=== PATIENT | female | born 1985 | race Caucasian/White ===

== ENCOUNTER 2019-09-19 11:37 | Emergency (ER) | payer BC ==
[~2019-09-19] VITALS: Ht 160 cm; Wt 93.9 kg
[2019-09-19 11:59] VITALS: Ht 160 cm; Wt 93.9 kg
[2019-09-19 12:44] LABS: BASOPHIL % 0.2 % (0-2); CALCIUM 8.9 mg/dL (8.5-10.1); CARBON DIOXIDE 27.5 mmol/L (21-32); CHLORIDE SERUM 106 mmol/L (98-107); CREATININE SERUM 0.8 mg/dL (0.6-1.0); GFR1 > 60 mL/min; GLUCOSE SERUM 113 mg/dL (74-106); PLATELET COUNT 350 x10^3mcL (130-400); POTASSIUM SERUM 4.2 mmol/L (3.5-5.1); RED CELL DISTRIBUTION WIDTH 13.3 % (11.5-14.5); SODIUM SERUM 142 mmol/L (136-145)
[2019-09-19 12:48] LABS: ALBUMIN 3.5 g/dL (3.4-5.0); ALKALINE PHOSPHATASE 94 U/L (46-116); ALT/SGPT 19 U/L (14-59); AST/SGOT 12 U/L (15-37); BILIRUBIN TOTAL 0.7 mg/dL (0.20-1.00); LIPASE 65 IU/L (73-393); TOTAL PROTEIN, SERUM 7.2 g/dL (6.4-8.2)
[2019-09-19 14:16] VITALS: BP 110/87
== END 2019-09-19 14:16 | disposition home or self-care (01) ==
LOC: ED 11:37
PROVIDERS: Emergency Medicine
DX: K52.9 Noninfective gastroenteritis and colitis, unspecified (principal); Z98.84 Bariatric surgery status
CPT/HCPCS: J2270; J2405; J7030; Q0092